=== PATIENT | female | born 1960 | race Caucasian/White ===

== ENCOUNTER 2016-11-07 19:14 | Emergency (ER) ==
[2016-11-07 21:23] LABS: MANUAL DIFF NEEDED? NO
[2016-11-07 21:29] LABS: BASO% 0.2 % (0.0-0.8); EOS% 0.7 % (0.0-10.0); HEMATOCRIT 41.6 % (37.0-47.0); HEMOGLOBIN 14.3 g/dL (12.0-16.0); IMM GRAN# 0.03 X1000 (0.0-0.04); IMM GRAN% 0.2 % (0.0-0.5); LYMPH# 3.91 X1000 (1.2-3.4); LYMPH% 26.6 % (20.5-51.1); MCHC 34.4 g/dL (33-37); MCV 87.2 FL (81-99); MONO# 0.98 X1000 (0.11-0.59); MONO% 6.7 % (1.7-9.3); MPV 10.9 FL (7.4-10.4); NEUT% 65.6 % (42.2-75.2); PLT 367 X1000 (130-400); RBC 4.77 XMIL (4.2-5.4)
[2016-11-07 22:04] LABS: AGAP 15; ALBUMIN 4.2 g/dL (3.5-5.0); ALKALINE PHOSPHATASE 86 U/L (32-104); AMYLASE 47 U/L (20-200); BUN 15 mg/dL (8-22); CALCIUM 9.5 mg/dL (8.8-10.2); CHLORIDE 92 mmol/L (98-107); COSMO 271; GOT 16 U/L (10-30); GPT 18 U/L (10-36); LIPASE 22 U/L (13-60); POTASSIUM 4.2 mmol/L (3.5-5.1); SODIUM 133 mmol/L (136-145); TCO2 26 mmol/L (25-35); TOTAL BILIRUBIN 0.58 mg/dL (0.20-1.00); TOTAL PROTEIN 7.8 g/dL (6.3-8.3)
[2016-11-07 23:07] LABS: BILIRUBIN URINE NEGATIVE (NEGATIVE); BLOOD URINE NEGATIVE (NEGATIVE); COLOR YELLOW; GLUCOSE URINE 500 mg/dL (NEGATIVE); LEUKOCYTES URINE LARGE (NEGATIVE); NITRITE URINE NEGATIVE (NEGATIVE); PH URINE 5.5; PROTEIN URINE 30 mg/dL (NEGATIVE); SP GRAVITY URINE 1.029; TURBIDITY URINE HAZY (CLEAR); URINE SOURCE CLEAN CATCH; UROBILINOGEN URINE NORMAL (NORMAL)
[2016-11-07 23:08] LABS: URINE MICRO REVIEW NEEDED? YES
[2016-11-07] MEDS ORDERED: ZOFRAN IV ONE (23:21)
[2016-11-07] MEDS ORDERED: NS 1,000 ML IV ONE (23:21)
--- NOTE | 2016-11-07 23:24 | PROVIDER DOCUMENTATION ---
HPI-General Adult - General Source: patient - History of Present Illness -Gen Adult Nature of Presenting Problems: 55 Y/O F presents to ED with N/V/D. Pt states that she feels dehydrated with V/ D since Friday.States not able to eat since the constant V/D. States diabetic, felt lightheaded,N. ABD on Friday and woke up with leg cramps this morning. Pt has had her gallbladder removed. Location of Pain/Injury: reports: generalized Pain Radiation: reports: no radiation Severity: reports: moderate Onset/Duration: reports: 5 days ago Timing: reports: still present Context/Activities at Onset: reports: none Associated Symptoms: reports: diarrhea, nausea, vomiting. denies: sinus congestion/drainage <Jes Albright - Last Filed: 11/07/16 23:19> <Alex Alexis - Last Filed: 11/08/16 01:24> - General Chief Complaint: N/V/D Stated Complaint: DEHYDRATED Time Seen by Provider: 11/07/16 23:19 Allergies/Adverse Reactions: Patient Allergies Allergy/AdvReac Type Severity Reaction Status Date / Time No Known Allergies Allergy Verified 11/07/16 22:33 Home Medications: Home Medication List Medication Instructions Recorded Confirmed Last Taken Type Gabapentin 300 mg PO QHS 11/07/16 11/07/16 11/06/16 History Lisinopril 20 mg PO QAM 11/07/16 11/07/16 11/07/16 08:00 History PRAVAstatin [Pravachol] 20 mg PO QHS 11/07/16 11/07/16 11/06/16 21:00 History Cephalexin [Keflex] 500 mg PO BID #14 capsule 11/08/16 Unknown Rx Promethazine [Phenergan] 25 mg PO Q6H PRN PRN #20 tablet 11/08/16 Unknown Rx Review of Systems - Adult - REVIEW OF SYSTEMS - ADULT Constitutional: denies: chills, fever Eyes: reports: no symptoms reported Ears, Nose, Mouth & Throat: reports: no symptoms reported Cardiovascular: reports: no symptoms reported Respiratory: denies: cough Gastrointestinal: reports: abdominal pain, diarrhea, nausea, vomiting Genitourinary: reports: no symptoms reported Musculoskeletal: reports: no symptoms reported Integumentary: reports: no symptoms reported Neurological: reports: no symptoms reported Psychiatric: reports: no symptoms reported Endocrine: reports: no symptoms reported Hematologic/Lymphatic: reports: no symptoms reported Allergic/Immunologic: reports: no symptoms reported All Other Systems: Reviewed and Negative <Jes Albright - Last Filed: 11/07/16 23:19> Past History - Adult - PAST MEDICAL HISTORY-ADULT Review of Records: reports: Old Records Reviewed, Nursing Assessment Review, Medications Reviewed, Social history reviewed & non-contributory. Major Childhood Illnesses: reports: denies history Cardiovascular: reports: HTN, hyperlipidemia Respiratory: reports: denies history Gastrointestinal: reports: GERD Obstetrical/Gynecological: reports: denies history Genitourinary: reports: denies history Musculoskeletal: reports: denies history Neurological: reports: denies history Psychiatric: reports: depression Endocrine/Immune: reports: Diabetes Other Conditions: reports: denies history - PRIOR SURGERIES/PROCEDURES Surgical/Procedure History: reports: reviewed, not pertinent - PRIOR HOSPITALIZATIONS Prior Hospitalizations: reports: for other non-related - IMMUNIZATION STATUS Childhood Immunizations: See Nurse Assessment Flu Vaccine: See Nurse Assessment - FAMILY HISTORY Family History: reviewed, not pertinent - SOCIAL HISTORY Smoking: non-smoker Substance Use: none/never Alcohol Use Frequency: never Living Situation: family <Jes Albright - Last Filed: 11/07/16 23:19> Physical Exam-General - PHYSICAL EXAM-ADULT Initial Vital Signs Reviewed: Yes - CONSTITUTIONAL General Appearance: appears well, alert, no apparent distress - EYES Eyes: PERRL/EOMI, pink conjunctivae, fundi clear, no AV nicking - HEAD, EARS, NOSE, MOUTH & THROAT HENMT: normocephalic/atraumatic, moist mucous membranes, normal ENT inspection, TMs normal, pharynx normal - NECK Neck: non-tender, full range of motion, supple, normal inspection - RESPIRATORY Respiratory: chest non-tender, lungs clear, normal breath sounds - CARDIOVASCULAR Cardiovascular: normal peripheral pulses, regular rate, rhythm - GASTROINTESTINAL (ABDOMEN) Abdominal Exam: normal bowel sounds, non tender, soft - LYMPHATIC Lymphatic: no adenopathy - MUSCULOSKELETAL Back Exam: normal inspection, no CVA tenderness, no vertebral tenderness Extremity: normal range of motion, non-tender - SKIN Integumentary: normal color, normal turgor, warm/dry - 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 - PSYCHIATRIC Psych/Mental Status: normal mood/affect, normal thought content, normal thought process, oriented x 3 <Jes Albright - Last Filed: 11/07/16 23:19> Progress - PLAN OF CARE/RESULTS Progress/Plan/Lab Results: Orders Category Date Time Status Saline Loc DIRECTED Care 11/07/16 19:48 Active NPO Diet 11/07/16 19:[address] ABD/PELVIS W/ IV CONT ONLY [CT] Stat Exams 11/07/16 23:21 Taken AMYLASE [CHEM] Stat Lab 11/07/16 21:00 Completed CBC WITH ELECTRONIC DIFF [HEME] Stat Lab 11/07/16 21:00 Completed COMPREHENSIVE METABOLIC PANEL [CHEM] Stat Lab 11/07/16 21:00 Completed LIPASE [CHEM] Stat Lab 11/07/16 21:00 Completed URINALYSIS W/POSS RFLX CULT [URINALYSIS] Stat Lab 11/07/16 19:48 Completed URINE CULTURE [RM] Routine Lab 11/08/16 00:02 Received URINE MANUAL MICROSCOPIC [URINALYSIS] Stat Lab 11/07/16 19:48 Completed 0.9% Sodium Chloride Inj [Ns] 1,000 ml Med 11/07/16 23:21 Discontinued IV 999 mls/hr CefTRIAXONE 1 GM/NS [Rocephin 1 gm/Ns] 50 ml Med 11/08/16 01:02 Active IV NOW Ondansetron [Zofran] Med 11/07/16 23:21 Discontinued 4 mg IV NOW ONE Laboratory Tests 11/07/16 11/07/16 11/07/16 19:48 21:00 21:00 WBC 14.68 H RBC 4.77 Hgb 14.3 Hct 41.6 MCV 87.2 MCH 30.0 MCHC 34.4 RDW Std Deviation 13.7 Plt Count 367 MPV 10.9 H Immature Gran % (Auto) 0.2 Neut % (Auto) 65.6 Lymph % (Auto) 26.6 [place] % (Auto) 6.7 Eos % (Auto) 0.7 Baso % (Auto) 0.2 Immature Gran # (Auto) 0.03 Neut # (Auto) 9.63 H Lymph # (Auto) 3.91 H [place] # (Auto) 0.98 H Eos # (Auto) 0.10 Baso # (Auto) 0.03 Sodium 133 L Potassium 4.2 Chloride 92 L Carbon Dioxide 26 Anion Gap 15 BUN 15 Creatinine 0.9 Estimated GFR/1.73 m2 > 60 BUN/Creatinine Ratio 17 Glucose 170 H Calculated Osmolality 271 Calcium 9.5 Total Bilirubin 0.58 AST 16 ALT 18 Alkaline Phosphatase 86 Total Protein 7.8 Albumin 4.2 Globulin 3.6 Albumin/Globulin Ratio 1.2 Amylase 47 Lipase 22 Urine Source CLEAN CATCH Urine Color YELLOW Urine Turbidity HAZY Urine pH 5.5 Ur Specific [place] 1.029 Urine Protein 30 A Ur Glucose (Stick) 500 A Ur Ketones (Stick) TRACE A Urine Blood NEGATIVE Urine Nitrite NEGATIVE Urine Bilirubin NEGATIVE Urobilinogen Dipstick NORMAL Urine Leukocytes LARGE A Urine WBC (Auto) TNTC A Urine RBC (Auto) <10 U Epithel Cells (Auto) <10 Urine Bacteria (Auto) 2+ Urine Crystals CA CARBONATE PRESENT Small Round Cells NONE SEEN Urine Casts NONE SEEN Urine Yeast-like Cells NONE SEEN Vital Signs - 24 hr 11/07/16 11/07/16 19:23 22:29 Temperature 98.1 F 97.6 F Pulse Rate 73 65 Respiratory 18 18 Rate Blood Pressure 134/86 150/89 O2 Sat by Pulse 100 100 Oximetry - CT/MRI 1 CT Study: Abdomen, Pelvis Impression: Abnormal (Normal appendix, no diverticulitis or bowel obstruction - Radiology) <Alex Alexis - Last Filed: 11/08/16 01:24> Departure <Jes Albright - Last Filed: 11/07/16 23:19> - Departure Time of Disposition Order: 01:20 Certified Medical Emergency: Emergent <Alex Alexis - Last Filed: 11/08/16 01:24> - Departure DIAGNOSIS: Leukocytosis Qualifiers: Leukocytosis type: unspecified Qualified Code(s): D72.829 - Elevated white blood cell count, unspecified UTI (urinary tract infection) Qualifiers: Urinary tract infection type: site unspecified Hematuria presence: without hematuria Qualified Code(s): N39.0 - Urinary tract infection, site not specified Nausea & vomiting Qualifiers: Vomiting type: unspecified Vomiting Intractability: unspecified Qualified Code( s): R11.2 - Nausea with vomiting, unspecified Disposition: HOME 01 Condition: Stable Additional Instructions: ED Follow Up Instructions: You have been treated by a care provider in the Emergency Department. These instructions are being provided to you so you can have an understanding of how to care for yourself upon discharge. Upon discharge from the Emergency Department, you are responsible for making arrangements for follow-up care by a physician of your choice. Take all prescribed medications as directed. Return to the Emergency Department immediately for any new or worsening symptoms. You may call the Physician Referral phone number at [phone] to obtain a list of Physicians who are taking new patients. Prescriptions: Cephalexin [Keflex] 500 mg PO BID #14 capsule Promethazine [Phenergan] 25 mg PO Q6H PRN PRN #20 tablet PRN Reason: Nausea Referrals: Ezra Berman MD [Primary Care Provider] - Attestation - Scribe Verification/Attestation Scribe:: Jes Albright Acting as Scribe for:: Riccardo Hernadez Scribe documention review:: This chart was documented by a scribe and accurately reflects the service the provider performed and the decisions made by the provider. - Physician/ ADAM Attestation Patient care was provided by Advanced Practice Provider:: Yes Advanced Practice Provider:: Alex Alexis Advanced Practice Provider documentation review:: The Mid-level provider documentation, treatment plan and medical decision making was reviewed by the physician who agrees with all treatment and medical decision making by the MLP. <Jes Albright - Last Filed: 11/07/16 23:19> - Physician/ ADAM Attestation Patient care was provided by Advanced Practice Provider:: Yes Advanced Practice Provider:: Alex Alexis Advanced Practice Provider documentation review:: The Mid-level provider documentation, treatment plan and medical decision making was reviewed by the physician who agrees with all treatment and medical decision making by the MLP. <Alex Alexis - Last Filed: 11/08/16 01:24> Physician Attestation
[2016-11-08 00:02] LABS: URINE CULTURE NEEDED? YES
[2016-11-08 00:03] LABS: URINE CASTS NONE SEEN; URINE SMALL ROUND CELLS NONE SEEN
[2016-11-08 00:06] LABS: UR EPITHELIAL CELLS <10 /HPF (<10); URINE BACTERIA 2+ /HPF; URINE RBC <10 /HPF (<10); URINE WBC TNTC /HPF (<10)
[2016-11-08 00:13] LABS: URINE CRYSTALS CA CARBONATE PRESENT
[2016-11-08] MEDS ORDERED: ROCEPHIN 1 GM/NS 50 ML IV ONE (01:02)
[2016-11-08 01:42] VITALS: BP 126/70
--- NOTE | 2016-11-08 08:13 | Diag Imaging Result Document ---
PROCEDURE NAME: CT ABD/PELVIS W/ IV CONT ONLY - 11/07/2016 CT OF THE ABDOMEN WITH INTRAVENOUS CONTRAST: FINDINGS: There is atelectasis or fibrosis present in the lung bases, particularly the left lower lobe. There are no previous studies. The aorta is not distended and the mesenteric and renal arteries are patent. There has been cholecystectomy. The adrenal glands and spleen are not enlarged. The pancreas is normal in appearance. There is a hemangioma in the inferior right hepatic lobe. The kidneys are without evidence of hydronephrosis or mass. There is no evidence of bowel obstruction or significant adenopathy. CT OF THE PELVIS WITH INTRAVENOUS CONTRAST: The appendix is not distended. There is some stool in the distal colon. There is no evidence of obstruction or free fluid. There are no adnexal masses and the uterus is unremarkable in appearance. The urinary bladder is not distended. There is some degenerative disk disease particularly in the upper lumbar spine. No evidence of acute bony abnormality is present. IMPRESSION: No evidence of acute intra-abdominal or pelvic disease.
== END 2016-11-08 01:40 | disposition home or self-care (01) ==
LOC: ED 19:14
DX: N39.0 Urinary tract infection, site not specified (principal); D72.829 Elevated white blood cell count, unspecified; R11.2 Nausea with vomiting, unspecified; R19.7 Diarrhea, unspecified; R10.9 Unspecified abdominal pain; I10 Essential (primary) hypertension; E78.5 Hyperlipidemia, unspecified; K21.9 Gastro-esophageal reflux disease without esophagitis; E11.9 Type 2 diabetes mellitus without complications; F32.9 Major depressive disorder, single episode, unspecified; Z79.899 Other long term (current) drug therapy
CPT/HCPCS: 74177; 80053; 81001; 82150; 83690; 85025; J0696; J2405; J7030; Q9967

== ENCOUNTER 2017-02-03 22:47 | Observation (INO) ==
[2017-02-03] MEDS ORDERED: ASPIRIN PO ONE (23:43)
[2017-02-03] MEDS ORDERED: NITROGLYCERIN TOP ONE (23:45)
[2017-02-03] MEDS ORDERED: CATAPRES PO ONE (23:45)
[2017-02-03 23:54] LABS: MANUAL DIFF NEEDED? NO
[2017-02-03 23:58] LABS: BASO% 0.4 % (0.0-0.8); EOS# 0.38 X1000 (0.0-0.7); EOS% 2.7 % (0.0-10.0); HEMOGLOBIN 13.8 g/dL (12.0-16.0); IMM GRAN# 0.02 X1000 (0.0-0.04); IMM GRAN% 0.1 % (0.0-0.5); LYMPH% 43.4 % (20.5-51.1); MCH 29.5 PG (27-31); MCHC 33.7 g/dL (33-37); MCV 87.6 FL (81-99); MONO# 1.26 X1000 (0.11-0.59); MPV 11.4 FL (7.4-10.4); NEUT% 44.4 % (42.2-75.2); PLT 362 X1000 (130-400); RBC 4.68 XMIL (4.2-5.4)
[2017-02-04 00:07] LABS: INR 0.96; PROTIME 10.1 Seconds (9.2-11.7); PTT 26.7 Seconds (22.0-36.0)
--- NOTE | 2017-02-04 00:27 | PROVIDER DOCUMENTATION ---
HPI-Cardiac General - General Chief Complaint: B/P Problems Stated Complaint: HIGH BP Time Seen by Provider: 02/03/17 23:16 Source: patient Allergies/Adverse Reactions: Patient Allergies Allergy/AdvReac Type Severity Reaction Status Date / Time No Known Allergies Allergy Verified 02/03/17 22:55 Home Medications: Home Medication List Medication Instructions Recorded Confirmed Last Taken Type Lisinopril 20 mg PO QAM 11/07/16 02/03/17 02/03/17 09:00 History PRAVAstatin [Pravachol] 20 mg PO QHS 11/07/16 02/03/17 02/02/17 History Citalopram [Celexa] 20 mg PO QAM 02/03/17 02/03/17 02/03/17 09:00 History Glimepiride 4 mg PO QAM 02/03/17 02/03/17 02/03/17 09:00 History Hydrocodone/Acetaminophen [Goode 1 each PO PRN PRN 02/03/17 02/03/17 Unknown History 5-325 Tablet] Meloxicam [Mobic] 7.5 mg PO QAM 02/03/17 02/03/17 02/03/17 09:00 History Metformin E.r. [Glucophage Xr] 1,000 mg PO QHS 02/03/17 02/03/17 02/02/17 History Zolpidem C.r. [Ambien Cr] 6.25 mg PO QHS 02/03/17 02/03/17 02/02/17 History - History of Present Illness-Cardiac Nature of Presenting Problem: 56 yom with high BP, headache for a week. Tonight at work patient also began to have chest pain. Location: reports: substernal Quality of Pain: reports: pressure Severity in ED: mild Onset/Duration: 4-6 hours ago Timing: still present, improving Context/Activities at Onset: reports: moderate activity Modifying Factors: improves with: rest Palpitation Quality: N/A History of arrythmia: reports: none Recent use of:: reports: caffeine Nitro Today/Relief: reports: no nitro taken today Aspirin Treatment Today: reports: 325 mg x 1, provided by ED Prior Chest Pain/Cardiac Workup: reports: no prior chest pain, no prior cardiac workup Associated Symptoms: reports: headache Similar Symptoms Previously?: No Recently Seen Here or By Another Healthcare Provider: No Review of Systems - Adult - REVIEW OF SYSTEMS - ADULT Constitutional: reports: see HPI Eyes: reports: no symptoms reported Ears, Nose, Mouth & Throat: reports: no symptoms reported Cardiovascular: reports: see HPI, chest pain Respiratory: reports: no symptoms reported Gastrointestinal: reports: no symptoms reported Genitourinary: reports: no symptoms reported Musculoskeletal: reports: no symptoms reported Integumentary: reports: no symptoms reported Neurological: reports: see HPI, headache/migraines Psychiatric: reports: no symptoms reported Endocrine: reports: no symptoms reported Hematologic/Lymphatic: reports: no symptoms reported Allergic/Immunologic: reports: no symptoms reported All Other Systems: Reviewed and Negative Past History - Adult - PAST MEDICAL HISTORY-ADULT Review of Records: reports: Old Records Reviewed, Nursing Assessment Review, Medications Reviewed, Social history reviewed & non-contributory. Major Childhood Illnesses: reports: denies history Cardiovascular: reports: HTN, hyperlipidemia Respiratory: reports: denies history Gastrointestinal: reports: GERD Obstetrical/Gynecological: reports: denies history Genitourinary: reports: denies history Musculoskeletal: reports: denies history Neurological: reports: denies history Psychiatric: reports: depression Endocrine/Immune: reports: Diabetes Other Conditions: reports: denies history - PRIOR SURGERIES/PROCEDURES Surgical/Procedure History: reports: reviewed, not pertinent - PRIOR HOSPITALIZATIONS Prior Hospitalizations: reports: for other non-related - IMMUNIZATION STATUS Childhood Immunizations: See Nurse Assessment Flu Vaccine: See Nurse Assessment - FAMILY HISTORY Family History: reviewed, not pertinent Physical Exam-General - PHYSICAL EXAM-ADULT Initial Vital Signs Reviewed: Yes - CONSTITUTIONAL General Appearance: alert, no apparent distress - EYES Eyes: PERRL/EOMI, pink conjunctivae - HEAD, EARS, NOSE, MOUTH & THROAT HENMT: normocephalic/atraumatic, moist mucous membranes, normal ENT inspection - NECK Neck: non-tender, full range of motion, supple, normal inspection - RESPIRATORY Respiratory: chest non-tender, lungs clear, normal breath sounds, no pleuratic chest pain, no respiratory distress, no accessory muscle use - CARDIOVASCULAR Cardiovascular: normal peripheral pulses, regular rate, rhythm, no edema - GASTROINTESTINAL (ABDOMEN) Abdominal Exam: normal bowel sounds, non tender, soft, no organomegaly, no pulsatile mass - LYMPHATIC Lymphatic: no adenopathy - MUSCULOSKELETAL Back Exam: normal inspection, no CVA tenderness Extremity: normal range of motion, non-tender, normal gait, normal inspection, no pedal edema, no calf tenderness, normal capillary refill, pelvis stable - SKIN Integumentary: normal color, normal turgor, warm/dry - NEUROLOGIC Neurologic: grossly normal, no motor/sensory deficits - PSYCHIATRIC Psych/Mental Status: normal mood/affect, normal thought content, normal thought process, oriented x 3 Progress - PLAN OF CARE/RESULTS Progress/Plan/Lab Results: Vital Signs - 8 hr 02/03/17 22:52 Temperature 98.1 F Pulse Rate 82 Respiratory Rate 18 Blood Pressure 189/83 O2 Sat by Pulse Oximetry 100 Laboratory Results - last 24 hr 02/03/17 02/03/17 02/03/17 23:49 23:49 23:49 WBC 14.05 H RBC 4.68 Hgb 13.8 Hct 41.0 MCV 87.6 MCH 29.5 MCHC 33.7 RDW Std Deviation 13.2 Plt Count 362 MPV 11.4 H Immature Gran % (Auto) 0.1 Neut % (Auto) 44.4 Lymph % (Auto) 43.4 [place] % (Auto) 9.0 Eos % (Auto) 2.7 Baso % (Auto) 0.4 Immature Gran # (Auto) 0.02 Neut # (Auto) 6.23 Lymph # (Auto) 6.10 H [place] # (Auto) 1.26 H Eos # (Auto) 0.38 Baso # (Auto) 0.06 PT INR PTT (Actin FS) D-Dimer 0.33 Sodium 140 Potassium 3.2 L Chloride 101 Carbon Dioxide 24 L Anion Gap 15 BUN 15 Creatinine 0.7 Estimated GFR/1.73 m2 > 60 BUN/Creatinine Ratio 21 Glucose 131 H Calculated Osmolality 282 Calcium 9.0 Magnesium 1.7 Total Bilirubin 0.31 AST 14 ALT 11 Alkaline Phosphatase 72 Creatine Kinase 71 Troponin T Ojp-M-Vmbdvyymzey Pept Total Protein 7.3 Albumin 4.0 Globulin 3.3 Albumin/Globulin Ratio 1.2 02/03/17 02/03/17 02/03/17 23:49 23:49 23:49 WBC RBC Hgb Hct MCV MCH MCHC RDW Std Deviation Plt Count MPV Immature Gran % (Auto) Neut % (Auto) Lymph % (Auto) [place] % (Auto) Eos % (Auto) Baso % (Auto) Immature Gran # (Auto) Neut # (Auto) Lymph # (Auto) [place] # (Auto) Eos # (Auto) Baso # (Auto) PT 10.1 INR 0.96 PTT (Actin FS) 26.7 D-Dimer Sodium Potassium Chloride Carbon Dioxide Anion Gap BUN Creatinine Estimated GFR/1.73 m2 BUN/Creatinine Ratio Glucose Calculated Osmolality Calcium Magnesium Total Bilirubin AST ALT Alkaline Phosphatase Creatine Kinase Troponin T < 0.010 [id number]-D-Cstycnwpbax Pept 154 Total Protein Albumin Globulin Albumin/Globulin Ratio Orders Category Date Time Status CHEST-2 VIEWS [RAD] Stat Exams 02/03/17 23:44 Taken HEAD W/O CONTRAST [CT] Stat Exams 02/03/17 23:45 Taken CBC WITH ELECTRONIC DIFF [HEME] Stat Lab 02/03/17 23:49 Completed CK PROFILE [SP CHEM] Stat Lab 02/03/17 23:49 Completed COMPREHENSIVE METABOLIC PANEL [CHEM] Stat Lab 02/03/17 23:49 Completed D-DIMER [CHEM] Stat Lab 02/03/17 23:49 Completed MAGNESIUM [CHEM] Stat Lab 02/03/17 23:49 Completed PRO B-NATRIURETIC PEPTIDE Stat Lab 02/03/17 23:49 Completed PROTIME WITH INR [COAG] Stat Lab 02/03/17 23:49 Completed PTT [COAG] Stat Lab 02/03/17 23:49 Completed TROPONIN T Stat Lab 02/03/17 23:49 Completed Aspirin Med 02/03/17 23:43 Discontinued 325 mg PO NOW ONE Clonidine [Catapres] Med 02/03/17 23:45 Discontinued 0.1 mg PO NOW ONE Nitroglycerin Med 02/03/17 23:45 Discontinued 1 inch TOP NOW ONE Pulse Oximetry Stat Oth 02/03/17 23:44 Active EKG [EKG] Stat Ther 02/03/17 22:53 Ordered Result Diagrams: 02/03/17 23:49 02/03/17 23:49 - XRAY 1 XRAY Study: Chest Impression: See EMR Report (Cardiomegaly, otherwise NAD per Dr. hendrickson) - CT/MRI 1 CT Study: Head Impression: See EMR Report (Mild right Basilar sinus disease. Per radiologist.) - CONSULTS/PCP/HOSPITALIST Notification Time Discussed: 01:07 Consult Disposition: Will see in ED, Admit Departure - Departure Time of Disposition Decision: 01:07 DIAGNOSIS: Chest pain Qualifiers: Chest pain type: unspecified Qualified Code(s): R07.9 - Chest pain, unspecified Disposition: ADMITTED INPATIENT 09 Certified Medical Emergency: Emergent Condition: Stable Referrals and Follow-Ups: Ezra Berman MD [Primary Care Provider] - - Critical Care Note This patient required my direct & personal management of CC.: No Attestation - Physician/ ADAM Attestation Patient care was provided by Advanced Practice Provider:: Yes Advanced Practice Provider:: Alexandr Cárdenas Advanced Practice Provider documentation review:: The Mid-level provider documentation, treatment plan and medical decision making was reviewed by the physician who agrees with all treatment and medical decision making by the MLP.
[2017-02-04 00:34] LABS: AGAP 15; ALKALINE PHOSPHATASE 72 U/L (32-104); BUN 15 mg/dL (8-22); CHLORIDE 101 mmol/L (98-107); CK PROFILE 71 U/L (24-173); COSMO 282; GOT 14 U/L (10-30); GPT 11 U/L (10-36); MAGNESIUM 1.7 mg/dL (1.5-2.7); POTASSIUM 3.2 mmol/L (3.5-5.1); SODIUM 140 mmol/L (136-145); TCO2 24 mmol/L (25-35); TOTAL BILIRUBIN 0.31 mg/dL (0.20-1.00); TOTAL PROTEIN 7.3 g/dL (6.3-8.3)
[2017-02-04] MEDS ORDERED: KLOR-CON PO ONE (03:10)
[2017-02-04] MEDS ORDERED: TYLENOL PO PRN (03:23)
[2017-02-04] MEDS ORDERED: ZOFRAN IV PRN (03:23)
[2017-02-04] MEDS ORDERED: NORCO-5 PO PRN (03:23)
[2017-02-04] MEDS: PROTONIX IV SCH (03:55)
[2017-02-04] MEDS: SODIUM CHLORIDE 0.9% INJ SCH (03:55)
[2017-02-04] MEDS ORDERED: NS 1,000 ML IV SCH (04:51)
--- NOTE | 2017-02-04 05:18 | EKG Report ---
Test Performed on : 02/03/2017 10:59:43 PM Test Reason : palpitations Blood Pressure : / mmHG Vent. Rate : 071 BPM Atrial Rate : 071 BPM P-R Int : 148 ms QRS Dur : 090 ms QT Int : 420 ms P-R-T Axes : 067 047 041 degrees QTc Int : 456 ms Normal sinus rhythm. Possible Left atrial enlargement Borderline ECG When compared with ECG of 14-DEC-2011 11:51, QT has lengthened Unconfirmed Result
[2017-02-04] MEDS: PRILOSEC PO SCH (05:59)
[2017-02-04 06:06] LABS: MANUAL DIFF NEEDED? NO
[2017-02-04 06:14] LABS: BASO% 0.4 % (0.0-0.8); EOS# 0.45 X1000 (0.0-0.7); EOS% 3.3 % (0.0-10.0); HEMOGLOBIN 12.7 g/dL (12.0-16.0); IMM GRAN# 0.03 X1000 (0.0-0.04); IMM GRAN% 0.2 % (0.0-0.5); LYMPH% 41.6 % (20.5-51.1); MCH 29.5 PG (27-31); MCHC 33.4 g/dL (33-37); MCV 88.2 FL (81-99); MONO# 1.31 X1000 (0.11-0.59); MONO% 9.6 % (1.7-9.3); MPV 11.5 FL (7.4-10.4); NEUT% 44.9 % (42.2-75.2); PLT 334 X1000 (130-400); RBC 4.31 XMIL (4.2-5.4)
--- NOTE | 2017-02-04 06:20 | Diag Imaging Result Doc PS360 ---
EXAM: CHEST-2 VIEWS HISTORY: chest pain TECHNIQUE: COMPARISON: 11/18/2015. FINDINGS: The lungs are well expanded. The heart is mildly prominent. The vessels are not distended. There are no infiltrates. No pleural effusions. No free air beneath the diaphragm. IMPRESSION: Mildly prominent heart, otherwise negative exam. Electronically signed by Damian Hassan 02/04/2017 6:17 AM
[2017-02-04 06:21] LABS: AGAP 11; BUN 14 mg/dL (8-22); CALCIUM 8.6 mg/dL (8.8-10.2); CHLORIDE 102 mmol/L (98-107); COSMO 279; MAGNESIUM 1.6 mg/dL (1.5-2.7); POTASSIUM 3.4 mmol/L (3.5-5.1); SODIUM 139 mmol/L (136-145); TCO2 26 mmol/L (25-35)
[2017-02-04 06:27] LABS: HEMOGLOBIN A1C 6.8 % (4.8-6.0)
[2017-02-04] MEDS ORDERED: HUMALOG SUBQ SCH (07:00)
--- NOTE | 2017-02-04 07:01 | EKG Report ---
Test Performed on : 02/04/2017 06:27:19 AM Test Reason : Chest Pain Blood Pressure : / mmHG Vent. Rate : 057 BPM Atrial Rate : 057 BPM P-R Int : 140 ms QRS Dur : 082 ms QT Int : 504 ms P-R-T Axes : 032 069 053 degrees QTc Int : 490 ms Sinus bradycardia. Prolonged QT Abnormal ECG When compared with ECG of 03-FEB-2017 22:59, (Unconfirmed) No significant change was found Confirmed by Juan Francisco Jimenez MD ([id number]) on 02/05/2017 7:16:23 AM
--- NOTE | 2017-02-04 07:01 | HISTORY AND PHYSICAL ---
PRIMARY CARE PROVIDER: Dr. Berman. CHIEF COMPLAINT: Chest pain. HISTORY OF PRESENT ILLNESS: Ms. Hilliard is a 56-year-old, female who presented to the ER just before midnight on December 04 with complaints of left-sided chest pain that has been intermediate for 1 week. She reports that she has had a nonradiating left chest pain that she describes as a cramping-type pain in nature. She states this pain is not while she is at rest and occurs more when she is up moving around. She also complains of associated symptoms of shortness of breath, and a dry cough as well. The patient states that her shortness of breath and her dry cough occurs more at night when she is lying down. She does take lisinopril, but states she has been taking this for approximately 3 years and this cough has just started within the past week. She denies any fever, body aches or chills. She denies any dizziness, lightheadedness, abdominal pain, nausea, vomiting, diarrhea, dysuria or urinary frequency. The patient does report some chronic pain in her back and legs. She sees Dr. Pickard for pain management and is currently on Brielle and meloxicam. Upon presentation in the ER, the patient's blood pressure was elevated with initial reading of 189/83. She also reported a headache upon arrival too. A CT of the head, noncontrast which showed no acute intracranial abnormality, though does show some mild right basilar sinus disease. The patient reports that she has not been seen by a roto mixer operator before and has not received any cardiac testing previously. She does report having a lot of stressors in her life. She currently lives alone, is and is working 2 jobs. She works at [employer] in the [employer]. She has to be at work for this job at 7 a.m., and as soon she gets off from this job, she goes and works at [employer] in [place] until 10 or 11 o'clock at night and does this 5 days a week. Patient states that here lately she has had a lot of anxiety worrying about getting up on time to get to work and just working and not getting a lot of sleep. At this time we will admit the patient for further treatment and evaluation of her chest pain. REVIEW OF SYSTEMS: A 12 point review of systems was conducted with the patient. All were negative except for pertinent positives mentioned above in the HPI. PAST MEDICAL HISTORY: 1. Hypertension. 2. Hyperlipidemia. 3. Diabetes mellitus type 2. 4. Gastroesophageal reflux disease. 5. Insomnia. 6. Depression. 7. Scoliosis. 8. Degenerative disk disease. PAST SURGICAL HISTORY: 1. Cholecystectomy. 2. . 3. Neck surgery. 4. Right hand surgery for trigger finger. SOCIAL HISTORY: As previously mentioned the patient is and currently lives alone, but does have a son that lives here in the area. Her other son at age 21 secondary to problems with spina bifida. She does seem to have quite a few stressors in her life and does appear to have some anxiety problems as well. She denies any previous history of tobacco, alcohol or illicit drug use. She currently works 2 jobs at [employer] in the [employer] and at [employer] in [place]. FAMILY HISTORY: The patient reports that she is adopted and does not know any of her family medical history. ALLERGY HISTORY: The patient reports no known allergies. HOME MEDICATIONS: 1. Celexa 20 mg p.o. daily. 2. Glimepiride 4 mg p.o. q.a.m. 3. Brielle 5 mg p.o. p.r.n. for pain. 4. Lisinopril 10 mg p.o. q.a.m. 5. Mobic 7.5 mg p.o. q.a.m. 6. Metformin extended release 1000 mg p.o. at bedtime. 7. Pravachol 20 mg p.o. at bedtime. 8. Ambien controlled release 6.25 mg p.o. at bedtime. DIAGNOSTIC DATA: White blood cell count 4.05, hemoglobin 13.8, hematocrit 41, and platelet count is 362,000. PT 10.1, INR 0.96, PTT 26.7, D-dimer 0.33, sodium 140, potassium 3.2, chloride 101, bicarb 24, BUN 15, creatinine 0.7, glucose 131, calcium 9, magnesium 1.7. Liver function tests within normal limits. Troponin less than 0.01. ProBNP 154. The EKG showed normal sinus rhythm with possible left atrial enlargement at a rate of 71, QTc of 456. CT showed no intracranial abnormality. There was some mild right basilar sinus disease. Chest x-ray showed no acute abnormality though we are waiting the official radiology over read. PHYSICAL EXAMINATION: VITAL SIGNS: Temperature 98.5 degrees, heart rate 63, respirations 16, blood pressure is 144/70. Oxygen saturation is 98% on room air. GENERAL: This is a very pleasant, 56-year-old, female who is resting comfortably on the ER stretcher. She was awake, alert, and able to answer all questions appropriately. HEENT: Head is atraumatic, normocephalic. Pupils are equal, round, reactive to light. Were 3 mm bilaterally and brisk. Oral mucosa moist. Oropharynx clear. NECK: Supple. Trachea midline. No carotid bruits noted upon auscultation bilaterally. CARDIOVASCULAR: Patient has normal S1, S2. No murmurs, gallops, or rubs appreciated with a regular rate and rhythm. PULMONARY: Patient has symmetrical chest expansion bilaterally. Lung sounds are clear to auscultation bilateral lung gomez. ABDOMEN: Soft, nondistended. Nontender. Bowel sounds are present in all 4 quadrants. EXTREMITIES: No cyanosis, clubbing, or edema noted. Pulse, motor and sensory were intact in all extremities. Pedal pulses, radial pulses are 3+ bilaterally. INTEGUMENTARY: Patient's skin is pink, warm, dry, and intact. No lesions or sores noted. NEUROLOGICAL: Patient is alert, oriented x 4. Cranial nerves 2-12 are grossly intact. ASSESSMENT/PLAN: 1. Chest pain. Given that the patient has had no previous evaluation for this, we have placed orders for routine cardiac enzymes as well as repeat EKG in the morning. We have also placed an order for a myocardial perfusion stress test and a consult with Dr. Armendariz with cardiology. She did receive a 325 mg aspirin in the ER. Will continue with aspirin 81 mg p.o. daily. She will be NPO after midnight for her stress test. We will place her on telemetry for close cardiac monitoring and we will continue to follow. 2. Hypertension. Will continue her blood pressure medicine of lisinopril. 3. Hyperlipidemia. We will continue her pravastatin and she does have a lipid profile ordered for the morning as well. 4. Diabetes mellitus type 2. Will continue her glimepiride and metformin and we have placed an order for an A1c. 5. Gastroesophageal reflux disease for this, as well as GI prophylaxis. We have placed her on a Protonix 40 mg IV q.24 hours. 6. Depression. We will continue her Celexa. The patient was placed on the medical floor with telemetry. She will have vital signs q.4 hours, DVT prophylaxis was provided with SCDs. The patient did have a slightly elevated white blood cell count of 14.05. At this time there is no source for signs of infection. We did place an order for urinalysis and are awaiting those results at this time and will continue to follow. Further orders and recommendations pending hospital course, diagnostic studies and physician evaluation. Dictated by JARED Choi for Corby Wall MD Seen and examined pt myself. Discussed case with CHROME TANNER. cc: MD Ezra Kinsey MD MTDD
--- NOTE | 2017-02-04 07:35 | Diag Imaging Result Doc PS360 ---
EXAM: HEAD W/O CONTRAST INDICATION: PALOMARES, High BP COMPARISON: 12/14/2011 FINDINGS: There is no discrete intracranial mass, mass effect, or intracranial hemorrhage. There is no evidence of acute infarct given the limited sensitivity of CT versus MRI. There is an air-fluid level in the right maxillary sinus suggesting sinusitis, possibly acute. Surrounding soft tissues and bony structures are essentially unremarkable, otherwise. IMPRESSION: Right maxillary sinus disease but no evidence of acute intracranial pathology. Electronically signed by Alex Wu 02/04/2017 7:33 AM
[2017-02-04] MEDS ORDERED: LEXISCAN ONE (10:27)
--- NOTE | 2017-02-04 10:50 | CONSULTATION ---
DATE OF CONSULTATION: 02/04/2017 HISTORY OF PRESENT ILLNESS: Amanda Hilliard is a 56-year-old, lady who has been having chest discomfort across her precordial area intermittently for the last 2-3 days. She came to the emergency room and was admitted. There was no radiation to the back associated with this chest pain. She felt a little lightheaded. There is no significant radiation to the back. There are no palpitations. There is no diaphoresis. REVIEW OF SYSTEMS: A 14 point review of systems was done.GI system: There is no history of hematemesis or melena. Central nervous system: No focal weakness to suggest a CVA or TIA. Genitourinary system: There is no dysuria or hematuria. Respiratory System: There is no history of cough, expectoration, hemoptysis. There is no history of fevers or chills. PAST MEDICAL HISTORY: 1. Hypertension. 2. Hyperlipidemia. 3. Gastroesophageal reflux disease. 4. Depression. 5. Diabetes. 6. Trigger finger surgery. 7. Cholecystectomy. 8. Pinched nerve. HOME MEDICATIONS: Include: 1. Pravastatin 20 mg. 2. Lisinopril 20. 3. Gabapentin 300. 4. Amaryl 4 mg. 5. Aspirin 81 mg a day. 6. Celexa 20 mg. ALLERGIES: She is not known to be allergic to any medication. SOCIAL HISTORY: She does not smoke. Does not drink. She is adopted. PHYSICAL EXAMINATION: Vital Signs: Blood pressure was 140/66. Cardiovascular System: Normal jugular venous pressure. There is no thyromegaly. No carotid bruit. First and second heart sounds were heard. There is no S3 gallop. Respiratory System: Normal air entry. There is no crepitations or rhonchi. Abdomen: Soft, nontender. There was no guarding or rigidity. Bowel sounds were heard. Central nervous system: Alert. Was moving all 4 extremities. Extremities: Examination of the extremities reveal no pedal edema. HEENT: Atraumatic, normocephalic. Pupils were equal and reacting to light. LABORATORY EXAMINATION: Revealed sodium 139, potassium 3.4, BUN 14, creatinine 0.7. She was ruled out for myocardial infarction by cardiac enzymes. LDL cholesterol was 100. Hematology: WBC 13.7, hemoglobin 12, hematocrit 38, platelet count of 334,000. Chest x-ray: No airspace disease. She had a CT scan which showed right maxillary sinusitis. Prominent heart was noted. ASSESSMENT AND PLAN: Ms Amanda Hilliard is a lady who comes with complaints of chest pain. Has history of hypertension, diabetes, hypercholesterolemia, neuropathy. She was ruled out for myocardial infarction by cardiac enzymes. Electrocardiogram revealed normal sinus rhythm. There was no acute ST-T changes to suggest ischemia or infarction. PLAN: 1. We will get an echocardiogram to assess cardiac and valvular function. 2. We will set her up to undergo a Cardiolite stress test to assess for and rule out ischemia. 3. Hypertension blood pressure under control, not made any changes. 4. Diabetes is under control. I would recommend continuing current medications. 5. Hypercholesterolemia. She is on pravastatin. I have not made any changes to her medications. Thank you for the consult. We will follow hospital course. cc: Willam Armendariz MD
[2017-02-04 11:50] LABS: URINE MICRO REVIEW NEEDED? NO; URINE SOURCE CLEAN CATCH
[2017-02-04 11:59] LABS: BILIRUBIN URINE NEGATIVE (NEGATIVE); BLOOD URINE NEGATIVE (NEGATIVE); COLOR YELLOW; GLUCOSE URINE NEGATIVE (NEGATIVE); LEUKOCYTES URINE SMALL (NEGATIVE); NITRITE URINE NEGATIVE (NEGATIVE); PH URINE 5.5; PROTEIN URINE TRACE mg/dL (NEGATIVE); TURBIDITY URINE CLEAR (CLEAR); UROBILINOGEN URINE NORMAL (NORMAL)
[2017-02-04 12:00] LABS: UR EPITHELIAL CELLS <10 /HPF (<10); URINE BACTERIA NEGATIVE /HPF; URINE CULTURE NEEDED? YES; URINE RBC <10 /HPF (<10); URINE WBC <10 /HPF (<10)
[2017-02-04] MEDS: AMARYL PO SCH (12:58)
[2017-02-04] MEDS: PRINIVIL PO SCH (12:58)
[2017-02-04] MEDS: ASPIRIN EC PO SCH (12:58)
[2017-02-04] MEDS: CELEXA PO SCH (12:58)
--- NOTE | 2017-02-04 13:01 | PROGRESS NOTE ---
DATE: 02/04/[address] Ezra Berman. This is a 56-year-old white female, presented to the emergency room with chest pain. Describes it as left-sided, it seems to be sharp and there seems to be a lot of pleuritic nature to it. Does not sound like a squeezing pressure type pain, nonradiating and cramping in nature but states sometimes a sharp pain takes her breath away. She has been on lisinopril taking for about 3 years and cough is just starting this past week. Denies fever, body aches or chills. Denies dizziness, lightheadedness, abdominal pain, vomiting, diarrhea, dysuria. PAST MEDICAL HISTORY: Of hypertension, hyperlipidemia, diabetes mellitus type 2, gastroesophageal reflux disease, insomnia, depression, scoliosis ,degenerative disk disease. PAST SURGICAL HISTORY: Cholecystectomy, , neck surgery, right hand surgery for trigger finger. EXAM: Today she still has a little bit of the left-sided pain but not as severe. Temp 98.3 degrees, pulse 63, respirations 16, blood pressure 140/66.Lungs: Clear in all lung gomez. Cardiovascular: Regular rate without murmur or S3. Abdomen: Soft. Skin: Warm and dry. LAB: Reviewed from yesterday and pretty unremarkable. Troponin was less than 0.01. CPK was 48. ASSESSMENT AND PLAN: 1. Chest pain. Sounds more pleuritic and chest wall in nature. EKG and enzymes unremarkable. Will obtain a myocardial perfusion test and Dr. Armendariz is following from Cardiology and did give some aspirin. 2. Hypertension. Continue her lisinopril. Blood pressure controlled. 3. Hyperlipidemia on pravastatin and continue this. 4. Diabetes mellitus type 2. We will check pattern sugars. We will follow. We did check a hemoglobin A1c. 5. Gastroesophageal reflux disease on Protonix IV q.24 hours. 6. Depression. Aware. Review of orders: I do not see any change at this point. cc: Shahriar Tavares MD
--- NOTE | 2017-02-04 16:25 | Diag Imaging Result Document ---
PROCEDURE NAME: MYOCARDIAL PERF SCAN, STR/REST - 02/04/2017 REASON FOR STUDY: A 56-year-old female with chest pain. STUDY: Rest-stress Lexiscan myocardial perfusion study. PRIMARY DOCTOR: Ezra Berman MD DESCRIPTION: The patient came into the Nuclear Lab, received a rest injection of technetium 99 sestamibi 12.9 millicuries. Multiple tomographic views of the cardiac structure were obtained at rest. Subsequently the patient underwent infusion of Lexiscan 0.4 mg per protocol. At peak infusion, injected with technetium 99 sestamibi 36.6 millicuries. Multiple tomographic views of the cardiac structure were obtained following the completion of the protocol. SUMMARY OF ELECTROCARDIOGRAPHIC PORTION OF STUDY: Resting electrocardiogram shows sinus rhythm, rate 58 beats per minute. Resting blood pressure is 145/85. Resting ECG looks normal. Possible anterior scar. During the infusion of Lexiscan the heart rate increased to 83 beats per minute. Blood pressure went up to 160/77. The patient reported no chest pain, shortness of breath, or palpitations. The EKG showed no changes. Following the completion of the infusion, the heart rate and blood pressure returned back to baseline. IMPRESSION: In summary, the electrocardiographic response to the infusion of Lexiscan is deemed to be normal. SUMMARY OF MYOCARDIAL PERFUSION PORTION OF STUDY: Poststress tomographic views of the left ventricle show normal homogeneous distribution of radiotracer throughout the entire left ventricular myocardium. There is no evidence of any postexercise defect. The rest images show normal perfusion. Polar plots reveal the same. No evidence of inducible ischemia nor myocardial scar is noted. Gated SPECT shows normal left ventricular systolic function. Ejection fraction estimated at 60% with normal ventricular volumes. No wall motion abnormality. The lung-heart ratio is normal. TID is normal. IMPRESSION: In summary, this study shows: 1. Normal electrocardiographic response to infusion of Lexiscan. 2. Normal poststress myocardial perfusion scan. There is no scintigraphic evidence of pharmacologically induced myocardial ischemia utilizing the Lexiscan protocol. 3. Normal left ventricular systolic function. Ejection fraction estimated at 60% with normal ventricular volumes. No wall motion abnormality. This study would indicate a low risk for ischemic events. cc: Mariano Dodge MD
--- NOTE | 2017-02-04 18:32 | ECHO REPORT ---
ORDER DATE: 02/04/2017 INTERPRETING PHYSICIAN: Dr. Dodge REQUESTING PHYSICIAN: CLINICAL INDICATIONS: This is a 56-year-old female with chest pain. M-MODE MEASUREMENTS: Right ventricle: 2.1 cm. Left ventricle end diastole: 4.7 cm. Left ventricle end systole: 3.2 cm. Posterior wall: 1.0 cm. Interventricular septum: 1.0 cm. Left atrium: 3.2 cm. Aortic root: 3.1 cm. SUMMARY OF 2-DIMENSIONAL IMAGING: The left ventricular function is normal. Ejection fraction estimated at 55-60%. By computer tracing, it is actually 62%. No wall motion abnormality is noted. The chamber is not dilated. The right ventricle is normal. The aortic valve shows a mild degree of sclerosis of the cusps. Color flow mapping unremarkable. The mitral valve shows a mild degree of regurgitation. Pulse wave Doppler of mitral inflow shows normal E/A ratio. Tissue Doppler of septal and lateral mitral annulus averages 7 cm per second. Pulse wave Doppler of pulmonary venous flow is normal. There is no diastolic dysfunction. The tricuspid valve looks normal. Color flow mapping indicates a mild degree of regurgitation. The inferior vena cava is not dilated. Pulmonary pressure is estimated at 29 mmHg. The pulmonic valve looks normal. Color flow mapping unremarkable. There is no pericardial effusion, masses or thrombus. IMPRESSION: In summary, this study shows: 1. Normal left ventricular systolic function. Ejection fraction is estimated at 62%. 2. No diastolic function. 3. Normal pulmonary pressure. 4. Very mild degree of mitral and tricuspid regurgitation. Clinical correlation recommended. cc: MD Dacia Dior PA
[2017-02-04] MEDS ORDERED: PRAVACHOL PO SCH (21:00)
[2017-02-04] MEDS ORDERED: AMBIEN CR PO SCH (21:00)
[2017-02-04] MEDS ORDERED: GLUCOPHAGE XR PO SCH (21:00)
[2017-02-04] MEDS ORDERED: AMBIEN PO PRN (21:37)
[2017-02-05] MEDS: PROTONIX IV SCH (05:28)
[2017-02-05] MEDS: SODIUM CHLORIDE 0.9% INJ SCH (05:28)
[2017-02-05] MEDS: PRILOSEC PO SCH (05:59)
[2017-02-05] MEDS: AMARYL PO SCH (08:54)
[2017-02-05] MEDS: ASPIRIN EC PO SCH (08:55)
[2017-02-05] MEDS: CELEXA PO SCH (08:55)
[2017-02-05] MEDS: PRINIVIL PO SCH (08:55)
--- NOTE | 2017-02-05 10:00 | PROGRESS NOTE ---
DATE: 02/05/2017 SUBJECTIVE: She states that she has not had any further chest pain. PHYSICAL EXAMINATION: Vital Signs: Remains afebrile, pulse 66, respirations 16, blood pressure 157/75. Lungs: Are clear in all lung gomez. Cardiovascular Examination: Regular rhythm and rate without murmur or S3. Abdomen: Soft. Skin: Is warm and dry. LAB: Reviewed from yesterday. Blood sugars 114, 169, 133. Echocardiogram with Doppler done yesterday read by Dr. Dodge, normal left ventricular function. Ejection fraction 62%. Normal pulmonary pressures. Mild agree of mitral and tricuspid regurgitation. Myocardial perfusion scan on 02/04/2017 normal EKG response, normal poststress myocardial perfusion scan. Normal left ventricular systolic function. No sign of ischemia. IMPRESSION AND PLAN: I suspect she will get to go home. We will discuss with cardiology. cc: Shahriar Tavares MD
--- NOTE | 2017-02-05 10:12 | DISCHARGE SUMMARY ---
ADMISSION DATE: 02/04/2017 DISCHARGE DATE: 02/05/2017 HOSPITAL COURSE: This 56-year-old presented to the ER just before midnight on 12/04/2016 with complaints of left-sided chest pain which had been intermittent for a week. She reports that she has had nonradiating left chest pain that she describes as cramping pain in nature the day before this admission. She states the pain is not while she is at rest and occurs more when she is up moving around. She also complains of associated symptoms of shortness of breath and dry cough as well. She does take lisinopril, although she had been taking for about 3 years. The patient was admitted for atypical chest pain. PAST MEDICAL HISTORY: 1. Hypertension. 2. Hyperlipidemia. 3. Diabetes mellitus, type 2. 4. Gastroesophageal reflux. 5. Insomnia. 6. Depression. 7. Scoliosis. 8. Degenerative disk disease. PAST SURGICAL HISTORY: 1. Cholecystectomy. 2. section. 3. Neck surgery. 4. Right hand surgery for trigger finger. LIST OF MEDICATION: 1. Celexa 20 mg a day. 2. Glimepiride 4 mg a day. 3. [place] 5 mg p.r.n. 4. Lisinopril 10 mg q.a.m. 5. Mobic 7.5 mg q.a.m. 6. Metformin 1000 mg at bedtime. 7. Pravachol 20 mg a day. 8. Ambien 6.25 mg. I think it is controlled release at bedtime. The patient admitted. Echocardiogram was unremarkable. Myocardial perfusion scan was also normal. She had no further chest pain. EKGs and enzymes were negative. It was felt she could go home on 02/05/2015. DISCHARGE MEDICATIONS: 1. Aspirin 81 mg a day. 2. Celexa 20 mg q.a.m. 3. Amaryl 4 mg a day. 4. Prinivil. We will keep her on 20 mg daily. 5. Glucophage XR 1000 mg at bedtime. 6. Prilosec 20 mg a day. 7. Pravachol 20 mg at bedtime when she takes her Ambien at night. Follow up with her primary care. cc: Shahriar Tavares MD
[2017-02-05 12:39] VITALS: BP 149/74
== END 2017-02-05 14:52 | disposition home or self-care (01) ==
LOC: ED 22:47 → 4N 22:47 → SUATTDRO 02-04 02:48
PROVIDERS: ATTEND Emergency Medicine